=== PATIENT | female | born 1970 | race Caucasian/White ===

== ENCOUNTER 2023-08-10 09:37 | Outpatient (CLI) | payer MEDICARE, MEDICAID | END 2023-08-10 23:59 | disposition home or self-care (01) | LOC: RAD 09:37 | PROVIDERS: ATTEND Nurse Practitioner Psychiatric/Mental Health | DX: Z79.899 Other long term (current) drug therapy (principal) | CPT/HCPCS: 93005 ==

== ENCOUNTER 2025-05-20 09:23 | Outpatient (CLI) | payer MEDICARE, MEDICAID ==
--- NOTE | 2025-05-20 09:50 | ELECTROCARDIOGRAPH REPORT ---
[facility] Test Date: 2025-05-20 Test Time: 09:38:15 Pat Name: ELIZABETH NGUYEN Department: PRE/OP CARDIOLOGY Room: Gender: F Electrologist: ALEXIS PEARCEB: 1970 Requested By: CALVIN MCGREGOR Order Number: [id number] Reading MD: Dr. ROXANE Cuevas Measurements Intervals [place] Rate: 83 P: 33 IL: 163 QRS: 48 QRSD: 71 T: 32 QT: 340 QTc: 400 Interpretive Statements Sinus rhythm Electronically Signed On 05-21-2025 19:12:[address] ROXANE Cuevas Please click the below link to view image of tracing.
== END 2025-05-20 23:59 | disposition home or self-care (01) ==
LOC: RAD 09:23
PROVIDERS: ATTEND Nurse Practitioner Psychiatric/Mental Health
DX: F25.0 Schizoaffective disorder, bipolar type (principal); Z79.899 Other long term (current) drug therapy
CPT/HCPCS: 93005